=== PATIENT | male | born 1960 | race Caucasian/White ===

== ENCOUNTER → 2018-04-26 | Outpatient (CLI) | payer OTHER ==
[2018-04-26 14:17] LABS: ALBUMIN 3.7 GM/DL (3.2-5.2); ALBUMIN/GLOBULIN RATIO 1.28 (1.00-1.93); ALKALINE PHOSPHATASE 49 U/L (45-117); ALT/SGPT 39 U/L (12-78); ANION GAP 7 MEQ/L (8-16); AST/SGOT 34 U/L (7-37); BILIRUBIN,TOTAL 0.5 MG/DL (0.2-1.0); BLOOD UREA NITROGEN 16 MG/DL (7-18); CALCIUM LEVEL 8.8 MG/DL (8.5-10.1); CARBON DIOXIDE LEVEL 30 MEQ/L (21-32); CHLORIDE LEVEL 107 MEQ/L (98-107); CHOLESTEROL LEVEL 190 MG/DL (<200); CHOLESTEROL RISK RATIO 2.567 (<5); CREATININE FOR GFR 1.02 MG/DL (0.70-1.30); GLOMERULAR FILTRATION RATE > 60.0 (>56); GLUCOSE, FASTING 98 MG/DL (70-100); HDL CHOLESTEROL 74 MG/DL (>40); LDL CHOLESTEROL 107.4 MG/DL (<100); NON-HDL-C 116 MG/DL; POTASSIUM SERUM 4.6 MEQ/L (3.5-5.1); SODIUM LEVEL 144 MEQ/L (136-145); TOTAL PROTEIN 6.6 GM/DL (6.4-8.2); TRIGLYCERIDES LEVEL 43 MG/DL (<150)
== END ==
LOC: M WUC 09:05
DX: E78.5 Hyperlipidemia, unspecified (principal)

== ENCOUNTER → 2018-04-26 | Outpatient (CLI) | payer OTHER ==
[2018-04-26 14:08] LABS: PROSTATIC SPECIFIC AG MONITOR 3.68 NG/ML (< 4.0)
== END ==
LOC: M WUC 09:08
DX: R97.20 Elevated prostate specific antigen [PSA] (principal)

== ENCOUNTER → 2021-07-16 | Outpatient (CLI) | payer BC ==
--- NOTE | 2021-07-16 11:56 | REP ---
INDICATION: PAIN WHILE RUNNING COMPARISON: 07/22/2006 TECHNIQUE: Sagittal spin-echo proton density, T2 STIR and T2 FLASH. Coronal spin-echo proton density and fat suppressed proton density. Axial fat suppressed proton density. FINDINGS: There is slight focus of linear hyper signal in the periphery of the posterior body of the medial meniscus and having contiguity with the inferior articular surface. This extends into the posterior horn region. Anterior horn of the medial meniscus is within normal limits. The anterior and posterior horns of the lateral meniscus are within normal limits. The anterior and posterior cruciate ligaments are intact the quadriceps and patellar tendons are intact. Medial and lateral collateral ligaments are intact. There is a minimal focus of T2 hyper signal seen in the mid body of the medial collateral ligament where it attaches to the medial meniscus, however, there is no abnormal gap between the medial collateral ligament and the medial meniscus. There is subtle subchondral T2 hyper signal in the medial femoral condyle and proximal medial tibial metaphysis both seen on the same image in the midportion of the knee. The medial and lateral patellar retinacula are intact. There is mild to moderate thinning and irregularity of all articular cartilages which has increased somewhat from the prior exam. There is a slight joint effusion. There is no Cui's cyst. IMPRESSION: 1. There is a subtle tear involving the medial meniscus as described above and seen in conjunction with a slight medial collateral ligamentous sprain. 2. There is mild medial femoral condylar and proximal medial tibial metaphyseal marrow edema. 3. There is a slight joint effusion. There is a small unchanged fluid collection near the tibiofibular articulation. 4. 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 5. There is superior parapatellar plica. <Electronically signed by Aroldo Wolf > 07/16/21 [id number]
== END ==
LOC: M PLAIMG 10:31
PROVIDERS: ATTEND Orthopaedic Surgery Sports Medicine
DX: S83.242A Other tear of medial meniscus, current injury, left knee, initial encounter (principal); M25.462 Effusion, left knee; M94.262 Chondromalacia, left knee; M67.52 Plica syndrome, left knee; X58.XXXA Exposure to other specified factors, initial encounter; Y92.9 Unspecified place or not applicable; Y99.9 Unspecified external cause status

== ENCOUNTER → 2022-03-18 | Outpatient (CLI) | payer BC | LOC: M EKG 15:08 | PROVIDERS: ATTEND Orthopaedic Surgery | DX: M72.0 Palmar fascial fibromatosis [Dupuytren] (principal) ==

== ENCOUNTER → 2022-03-25 | Outpatient (REF) | payer BC | LOC: M LAB REF 10:17 | PROVIDERS: ATTEND Orthopaedic Surgery | DX: M72.0 Palmar fascial fibromatosis [Dupuytren] (principal); D21.11 Benign neoplasm of connective and other soft tissue of right upper limb, including shoulder ==

== ENCOUNTER 2025-06-06 11:44 | Day surgery (SDC) | payer OTHER ==
[~2025-06-06] VITALS: Ht 179.1 cm; Wt 73.5 kg
[~2025-06-06 11:44] MED LIST: AMLO1TAB24 PO
[2025-06-06 14:04] VITALS: BP 108/66; O2SAT 99
== END 2025-06-06 14:06 | disposition home or self-care (01) ==
LOC: M OPP 11:44
PROVIDERS: ATTEND Surgery
DX: Z12.11 Encounter for screening for malignant neoplasm of colon (principal); Z79.899 Other long term (current) drug therapy